=== PATIENT | female | born 1975 | race Caucasian/White ===

== ENCOUNTER 2022-12-13 08:28 | Outpatient (CLI) | payer BC, SELFPAY ==
--- NOTE | 2023-01-02 12:43 | WPDHOMESLEEP ---
Sleep Study - Home Unattended Date of Study: 12/13/22 Ordering Provider: Gene Benitez APRN Interpreting Provider: Sruthi Kenyon, DO Home Sleep Study Type: Watch PAT Height: 1.6 m Weight: 101.151 kg Body Mass Index: 39.4 Neck Circumference (inches): 17 [place]: 4 Reason for Sleep Study Unrefreshing sleep, loud snoring, morning headaches Sleep History The patient is 47-year-old female with anxiety, depression, ADHD, GERD, constipation and obesity that had a sleep study ordered by the pulmonary group for evaluation of sleep apnea. The patient denies awakening from sleep short of breath. She rarely awakens at night with heartburn, belching or. She constantly snores loudly enough others complain. She constantly has trouble sleeping she has a cold. She denies waking up gasping for air throughout the night. She rarely has breathing problems at observed by herself or others. She constantly sweats excessively at night. She frequently has heart palpitations or irregular heartbeats during. She frequently falls asleep during the day but never while driving. She denies sleep paralysis and cataplexy. She frequently has trouble at school or work due to sleepiness. She frequently experiences vivid dreamlike scenes upon awakening or asleep. She denies feeling afraid of going to sleep. She occasionally has nightmares and frequently remembers her dreams. She occasionally has thoughts racing through her mind. She constantly feels sad or depressed. She frequently has anxiety. She frequently has muscular tension. She frequently notices parts of her body jerk. She denies kicking during the night. She denies having crawling and aching feelings in her legs and denies having leg pain during the night. She occasionally grinds her teeth during sleep but rarely awakens with morning jaw pain. She is occasionally bothered by pain during the day but never awakened by pain during night. She frequently wakes up feeling stiff morning. She occasionally wakes up with sore or achy muscles. She frequently wakes up with pain in her spine or other joints. She goes to bed between 8-9 p.m. on weekdays and between 9-10 p.m. on the weekends. It can take her 5-30 minutes to fall asleep. She wakes up once throughout the night to urinate and then will play on her phone. It can take her anywhere from 2 minutes up to 2 hours to fall back asleep. She wakes up between 6-6:30 a.m. weekdays and between 7:30-9:30 a.m. on the weekends. She typically gets 7 and 9 hours of sleep per night. She will stay in bed up to an hour after waking up in the morning. She currently lives with her and 2 daughters. She denies consuming any caffeinated beverages within 2 hours of. She denies engaging in physical exercise before bedtime. She will read before falling asleep. She denies watching television before asleep. She denies taking naps in afternoon the evening. She denies consuming caffeinated beverages throughout the day. She denies tobacco, and recreational drug use. [facility] Past Medical History Medical History ADHD Anxiety Major depression Surgical History Surgical History H/O hysterectomy with oophorectomy History of appendectomy History of tonsillectomy and adenoidectomy Family History Family History Grandparent Diabetes mellitus Malignant neoplastic disease Daughter Anxiety ADHD (attention deficit hyperactivity disorder) Social History Social History Smoking status: Never smoker Alcohol intake: never Medications Home Medications Medication Instructions Recorded Confirmed Type bupropion HCl 150 mg 24 hr tablet, mg PO 10/30/22 11/01/22 History extended release bupropion HCl 300 mg 24 hr tabl
[2023-01-02 12:48] VITALS: BMI 39.4
== END 2022-12-14 12:59 | disposition home or self-care (01) ==
LOC: ANHCSM 08:29
PROVIDERS: PCP Family Medicine; Visit Provider Nurse Practitioner Family
DX: G47.33 Obstructive sleep apnea (adult) (pediatric) (principal)
CPT/HCPCS: 95800

== ENCOUNTER 2023-01-08 09:13 | Outpatient (CLI) | payer BC, SELFPAY ==
--- NOTE | 2023-01-31 10:03 | WPDSLEEPSTUD ---
Sleep Study Date of Study: 01/08/23 Ordering Provider: Gene Benitez APRN Interpreting Physician: Jaimie Hassan MD Sleep Study Type: CPAP Titration Height: 1.6 m Weight: 99.337 kg Body Mass Index: 38.7 Neck Circumference (inches): 16.5 [place]: 4 Reason for Sleep Study * 12/13/2022 home sleep test with WatchPat showing severe sleep apnea with central apneas and evidence of Drew-Anand respirations. She returns for PAP titration. Sleep History Dana Good is a 47-year-old female with anxiety, depression, ADHD, GERD, who had a home sleep test Dec 13 showing severe obstructive sleep apnea, hypoxemia and Drew-Anand respirations. The patient denies awakening from sleep short of breath. She rarely awakens at night with heartburn, belching or. She constantly snores loudly enough others complain. She constantly has trouble sleeping she has a cold. She denies waking up gasping for air throughout the night. She rarely has breathing problems at observed by herself or others. She constantly sweats excessively at night. She frequently has heart palpitations or irregular heartbeats during. She frequently falls asleep during the day but never while driving. She denies muscle weakness with strong emotion, feeling paralyzed on waking or falling asleep although she does have vivid dreamlike scenes upon awakening or falling asleep. She frequently has daytime difficulties due to excessive sleepiness. She denies feeling afraid of going to sleep. She occasionally has nightmares and frequently remembers her dreams. She occasionally has thoughts racing through her mind. She constantly feels sad or depressed. She frequently has anxiety. She frequently has muscular tension. She frequently notices parts of her body jerk. She denies kicking during the night. She denies having crawling and aching feelings in her legs and denies having leg pain during the night. She occasionally grinds her teeth during sleep but rarely awakens with morning jaw pain. She is occasionally bothered by pain during the day but never awakened by pain during night. She frequently wakes up feeling stiff morning. She occasionally wakes up with sore or achy muscles. She frequently wakes up with pain in her spine or other joints. Normal bedtime is between 8-9 p.m. on weekdays and between 9-10 p.m. on the weekends. It can take her 5-30 minutes to fall asleep. She wakes up once throughout the night to urinate and then will play on her phone. It can take her anywhere from 2 minutes up to 2 hours to return to sleep. She wakes between 6:00 a.m.-6:30 a.m. weekdays and between 7:30-9:30 a.m. on the weekends. She typically gets between 7 and 9 hours of sleep per night. She stays in bed up to an hour after waking up in the morning. She currently lives with her and 2 daughters. She will read before falling asleep. She denies watching television before asleep. She denies taking naps in afternoon the evening. Habits: Tobacco: none Caffeine: She drinks caffeinated beverages throughout the day. Recreational substance: none [facility] Past Medical History Medical History (Updated 01/31/23 @ 10:11 by Jaimie Hassan MD) ADHD Anxiety Major depression MARIVEL (obstructive sleep apnea) Surgical History Surgical History H/O hysterectomy with oophorectomy History of appendectomy History of tonsillectomy and adenoidectomy Family History Family History Grandparent Diabetes mellitus Malignant neoplastic disease Daughter Anxiety ADHD (attention deficit hyperactivity disorder) Social History Social History Smoking status: Never smoker Alcohol intake: never Medications Home Medications Medication Instructions Recorded Confirmed Type bupropion HCl 150 mg 24 hr tablet, mg P
[2023-01-31 10:04] VITALS: BMI 38.7
== END 2023-01-09 06:36 | disposition home or self-care (01) ==
LOC: ANHCSM 09:28
PROVIDERS: PCP Family Medicine; Visit Provider Nurse Practitioner Family
DX: G47.33 Obstructive sleep apnea (adult) (pediatric) (principal)
CPT/HCPCS: 95811

== ENCOUNTER 2023-01-31 13:33 | Outpatient (CLI) | payer BC, SELFPAY ==
--- NOTE | 2023-01-31 13:48 | ECHO_ITS ---
Patient Info Name: Dana Good Age: 47 years : 1975 Gender: Female Ht: 63 in Wt: 220 lbs BSA: 2.16 m2 HR: 75 bpm BP: 135 / 85 mmHg Heart Rhythm: Sinus Rhythm Technical Quality: Good Exam Date: 01/31/2023 1:55 PM Exam Location: Echo Lab Patient Status: Outpatient Admit Date: 01/31/2023 Staff Ordering Physician: Gene Benitez APRN Supervising Film Or Videotape Editor: Vandana Michael RDCS Attending Provider: Gene Benitez APRN Referring Physician: Emmanuel LEIGH; Exam Type: CA echo doppler color flow Study Info Indications - centeral sleep apnea Complete two-dimensional, color flow and Doppler transthoracic echocardiogram is performed. Summary 1. Complete two-dimensional, color flow and Doppler transthoracic echocardiogram is performed. 2. Left ventricular chamber dimension is normal. 3. Left ventricular systolic function is normal, estimated at 65-70%. 4. The left ventricular diastolic function is grade I diastolic dysfunction. 5. Right ventricular systolic function is normal. 6. No significant valvular disease. Left Ventricle Left ventricular chamber dimension is normal. Left ventricular systolic function is normal, estimated at 65-70%. There is no increased left ventricular wall thickness. The left ventricular diastolic function is grade I diastolic dysfunction. Right Ventricle Right ventricular chamber dimension is normal. Right ventricular systolic function is normal. Left Atria Left atrial chamber dimension is normal. Right Atria Right atrial chamber dimension is normal. Atrial Septum Intact interatrial septum visualized by color flow imaging. Aortic Valve The aortic valve is not well visualized. There is no aortic valve stenosis. There is no aortic valve regurgitation. Pulmonic Valve The pulmonic valve is not well visualized. There is no pulmonic regurgitation. Mitral Valve There is trace mitral valve regurgitation. Tricuspid Valve There is no tricuspid valve regurgitation. Pericardium/Pleural There is no pericardial effusion. Inferior Vena Cava Normal inferior vena cava with <50% collapse upon inspiration. Aorta The aortic root size at the sinus of Valsalva is normal. Left Ventricular Outflow Tract Name Value Normal LVOT 2D LVOT Diameter 1.8 cm LVOT Doppler LVOT Peak Gradient 4 mmHg LVOT Mean Gradient 2 mmHg LVOT VTI 27 cm LVOT VTI/AV VTI Ratio 0.9 LVOT Stroke Volume 67 ml LVOT CO 3.7 l/min LVOT CI 1.7 l/min/m2 Pulmonic Valve Name Value Normal RVOT Doppler RVOT Peak Gradient 2 mmHg PV Doppler PV Peak Gradient 6 mmHg Mitral Valve
== END 2023-01-31 13:34 | disposition home or self-care (01) ==
PROVIDERS: PCP Family Medicine; Visit Provider Nurse Practitioner Family
DX: G47.31 Primary central sleep apnea (principal)
CPT/HCPCS: 93306